=== PATIENT | male | born 1995 | race Caucasian/White ===

== ENCOUNTER 2017-03-26 15:06 | Emergency (ER) | payer OTHER ==
[2017-03-26 15:12] VITALS: BP 119/80; PULSE 98; TEMP 99; BMI 19.1
--- NOTE | 2017-03-26 16:23 | PDOC ---
History of Present Illness - General Chief Complaint: Ear Problem Stated Complaint: LOSS OF RT HEARING Time Seen by Provider: 03/26/17 15:43 History Source: Patient Exam Limitations: No Limitations - History of Present Illness Initial Comments: 03/26/17 16:18 CHIEF COMPLAINT: Decreased hearing to right ear after sticking Q-tip in ear HISTORY OF PRESENT ILLNESS: Patient is a 21-year-old male, no significant medical history currently on no medication presents for evaluation of right ear muffled sound states that 2 days ago he put a Q-tip in his ear and may have to pushed it in too far and had some discomfort, no bleeding, no discharge. Used debrocs today and since with muffled hearing. Denies any fever, no pain. Severity: moderate Past History - Past Medical History Allergies/Adverse Reactions: Allergies Allergy/AdvReac Type Severity Reaction Status Date / Time No Known Allergies Allergy Verified 03/26/17 15:10 Home Medications: Ambulatory Orders Ciprofloxacin HCl/Dexameth [Ciprodex Otic Suspension] 3 drop AD BID #1 bottle - Suicide/Smoking/Psychosocial Hx Smoking History: Never smoked Have you smoked in the past 12 months: No Information on smoking cessation initiated: No Hx Alcohol Use: No Drug/Substance Use Hx: Yes Substance Use Type: Marijuana Review of Systems - Review of Systems Constitutional: No: Symptoms Reported HEENTM: Yes: Ear Pain (minor pain, muffled hearing to right ear.). No: Ear Discharge, Throat Pain, Throat Swelling, Mouth Pain, Difficulty Swallowing, Mouth Swelling Respiratory: No: Symptoms reported Cardiac (ROS): No: Symptoms Reported Hematologic/Lymphatic: No: Symptoms Reported All Other Systems: Reviewed and Negative *Physical Exam - Vital Signs Last Vital Signs Temp Pulse Resp BP Pulse Ox 99 F 98 H 20 119/80 97 03/26/17 15:11 03/26/17 15:11 03/26/17 15:11 03/26/17 15:11 03/26/17 15:11 - Physical Exam General Appearance: Yes: Appropriately Dressed. No: Apparent Distress HEENT: positive: [place], Normal ENT Inspection, Normal Voice, Symmetrical, Pharynx Normal, Hearing Decreased. negative: TMs Normal (unable to visualize bilateral cerumen impaction), Pharyngeal Erythema, Tonsillar Exudate, Tonsillar Erythema, Nasal Congestion, Rhinorrhea, Sinus Tenderness, Orbits, TM Bulging, TM Dull, TM Erythema Neck: positive: Trachea midline. negative: Tender, Tender lateral, Tender midline Respiratory/Chest: positive: Lungs Clear, Normal Breath Sounds. negative: Respiratory Distress, Accessory Muscle Use Cardiovascular: positive: Regular Rhythm, Regular Rate Lymphatic: negative: Adenopathy Neurologic: positive: Alert, Normal Mood/Affect Medical Decision Making - Medical Decision Making 03/26/17 16:24 A/P: Patient here from a full appearing to right ear after putting Q-tip in it, there is no foreign body there is cerumen impaction to ER attempted to flush, ceruminous to hardened. Patient to continue debrox, will give prescription for Cipro with hydrocortisone. Follow-up with ENT. *DC/Admit/Observation/Transfer Diagnosis at time of Disposition: Cerumen impaction Qualifiers: Laterality: right Qualified Code(s): H61.21 - Impacted cerumen, right ear; H61.21 - Impacted cerumen, right ear - Discharge Dispostion Disposition: HOME Condition at time of disposition: Good Admit: No - Prescriptions Prescriptions: Ciprofloxacin HCl/Dexameth [Ciprodex Otic Suspension] 3 drop AD BID #1 bottle - Referrals Referrals: Kush Matias MD [Staff Physician] - - Patient Instructions Printed Discharge Instructions: DI for Cerumen Impaction Additional Instructions: Continue D Broxson drops as prescribed to right ear, follow-up with ENT in one week if any pain, discharge, redness, swelling, or any other concerns return to ER
== END 2017-03-26 16:35 | disposition home or self-care (01) ==
LOC: JERFT 15:06
DX: H61.21 Impacted cerumen, right ear (principal)
CPT/HCPCS: 99281-25